=== PATIENT | female | born 1985 | race Caucasian/White ===

== ENCOUNTER 2018-01-09 05:37 | Day surgery (SDC) | payer MEDICAID ==
[2018-01-03 14:41] LABS: BASOPHILS # (AUTO) 0.1 X10'3 (0-0.2); EOSINOPHILS # (AUTO) 0.1 X10'3 (0-0.9); EOSINOPHILS % (AUTO) 1.4 % (0-6); LYMPHOCYTES # (AUTO) 1.3 X10'3 (1.1-4.8); LYMPHOCYTES % (AUTO) 16.4 % (21-51); MEAN CORPUSCULAR HGB CONC 32.9 % (33.0-36.5); MEAN PLATELET VOLUME 7.7 FL (7.4-10.4); MONOCYTES # (AUTO) 0.5 X10'3 (0-0.9); MONOCYTES % (AUTO) 6.3 % (2-12); NEUTROPHILS # (AUTO) 5.9 X10'3 (1.8-7.7); NEUTROPHILS % (AUTO) 74.9 % (42-75); PRE OP HEMATOCRIT 32.6 % (35.0-45.0); PRE OP PLATELET COUNT 351 X10'3 (140-440); RED CELL DISTRIBUTION WIDTH 21.6 % (11.5-14.5)
[2018-01-03 14:51] LABS: PRE OP PROTIME 10.7 SECONDS (9.0-12.0)
[2018-01-03 14:54] LABS: PRE OP HEMOGLOBIN 10.7 g/dL (12.0-16.0)
[2018-01-03 14:56] LABS: ALBUMIN 3.3 G/DL (3.4-5.0); ALBUMIN/GLOBULIN RATIO 0.7 (1.1-1.5); ALKALINE PHOSPHATASE 140 IU/L (46-116); BLOOD UREA NITROGEN 8 MG/DL (7-18); BUN/CREATININE RATIO 11.9 (6.6-38.0); CALCIUM 9.1 MG/DL (8.5-10.1); CHLORIDE 104 MMOL/L (99-107); CREATININE 0.67 MG/DL (0.40-0.90); PRE OP ANION GAP 11 (8-16); PRE OP AST 100 U/L (10-37); PRE OP BILIRUB, TOTAL 0.4 MG/DL (0.0-1.0); PRE OP GLUCOSE 113 MG/DL (70-104); PRE OP POTASSIUM 3.7 MMOL/L (3.4-5.1); PRE OP SODIUM 138 MMOL/L (135-145); TOTAL CARBON DIOXIDE 23.4 MMOL/L (24-32); TOTAL PROTEIN 8.3 G/DL (6.4-8.2); eGFR > 90 ML/MIN
[2018-01-03 14:58] LABS: PRE OP ALT 108 U/L (30-65)
[2018-01-03 17:51] LABS: PLATELET ESTIMATE NORMAL
[2018-01-03 17:53] LABS: LARGE PLATELETS FEW
[2018-01-03 17:54] LABS: ANISOCYTOSIS 3+; HYPOCHROMASIA 1+; POLYCHROMASIA FEW; TEAR DROP CELLS FEW
[2018-01-09] VITALS (8 sets, daily range): BP systolic 127–147; BP diastolic 70–93
[~2018-01-09] VITALS: Ht 167.6 cm; Wt 121.6 kg
[~2018-01-09 05:37] MED LIST: ALBU8.5H8 INH; DOCUMENT DATE & TIME OF BETA-BLOCKER PO ONE; FURO-150 PO; IRON PO; METO50TA16 PO; OMEP20CA10 PO; SPIR25TA5 PO; albuterol 2.5 MG/3 ML nebule NEB ONE; famotidine 20mg tablet PO ONE; ringers solution, lacted 1,000 ML IV SCH
[2018-01-09] MEDS ORDERED: LIDOcaine 1% (10mg/ml) 2ml vial ONE (06:12)
[2018-01-09] MEDS ORDERED: Cefazolin 2GM/50ML dext iso,osmotic IVPB IV ONE (06:19)
[2018-01-09] MEDS ORDERED: vancomycin inj 1,500 MG in normal saline 300ml IV soln IV ONE (06:19)
[2018-01-09] MEDS ORDERED: ROPIVAcaine 0.5% (5mg/ml) 30ml vial ONE (08:09)
[2018-01-09] MEDS ORDERED: MIDAZolam 5mg/5ml vial ONE (08:11)
[2018-01-09] MEDS ORDERED: fentaNYL /PF 50mcg/ml 5ml ampule ONE (08:11)
[2018-01-09] MEDS ORDERED: propofol inj 0 ML IV ONE (08:12)
[2018-01-09] MEDS ORDERED: LIDOcaine 2% (20mg/ml) 5ml vial ONE ×2 (08:12→12:34)
[2018-01-09] MEDS ORDERED: ondansetron/PF 4mg/2ml inj ONE (08:25)
[2018-01-09] MEDS ORDERED: sevoflurane 250ml liquid IH ONE (08:25)
[2018-01-09] MEDS ORDERED: dexamethasone sod phosphate 10mg/ml inj ONE (08:25)
[2018-01-09] MEDS ORDERED: ringers solution, lacted 1,000 ML IV SCH (09:27)
[2018-01-09] MEDS ORDERED: fentaNYL/PF 50MCG/1 ML 2ML syringe IV PRN ×2 (09:30)
[2018-01-09] MEDS ORDERED: hydrALAZINE 20mg/ml inj. IV PRN (09:30)
[2018-01-09] MEDS ORDERED: morphine 4 MG/ML inj SYRINge IV PRN ×2 (09:30)
[2018-01-09] MEDS ORDERED: labetalol 20mg/4ml (5mg/ml) syringe IV PRN (09:30)
[2018-01-09] MEDS ORDERED: ondansetron/PF 4mg/2ml inj IV PRN (09:30)
[2018-01-09] MEDS ORDERED: fentaNYL/PF 50MCG/1 ML 2ML syringe ONE (10:42)
[2018-01-09] MEDS ORDERED: HYDROcodone/acetaminophen 10/325mg tab PO PRN (11:10)
[2018-01-09] MEDS ORDERED: FERR325T32 PO (11:29)
[2018-01-09] MEDS ORDERED: propofol inj 20 ML IV ONE (12:33)
== END 2018-01-09 12:20 | disposition home or self-care (01) ==
LOC: PAS 05:37
PROVIDERS: ATTEND Orthopaedic Surgery
DX: S83.522A Sprain of posterior cruciate ligament of left knee, initial encounter (principal); M17.32 Unilateral post-traumatic osteoarthritis, left knee; M22.42 Chondromalacia patellae, left knee; G89.18 Other acute postprocedural pain; I10 Essential (primary) hypertension; E66.01 Morbid (severe) obesity due to excess calories; K21.9 Gastro-esophageal reflux disease without esophagitis; Z68.41 Body mass index [BMI] 40.0-44.9, adult; Z79.2 Long term (current) use of antibiotics; Z79.891 Long term (current) use of opiate analgesic; Z88.2 Allergy status to sulfonamides; Z72.89 Other problems related to lifestyle; Z79.51 Long term (current) use of inhaled steroids; Z86.79 Personal history of other diseases of the circulatory system; Z87.891 Personal history of nicotine dependence; Z88.8 Allergy status to other drugs, medicaments and biological substances; Z79.899 Other long term (current) drug therapy; Z98.890 Other specified postprocedural states; X58.XXXA Exposure to other specified factors, initial encounter; Y93.89 Activity, other specified; Y92.89 Other specified places as the place of occurrence of the external cause; Y99.8 Other external cause status
CPT/HCPCS: 29889; 36415; 64447; 71046; 80053; 85025; 85610; 85730; 93005; 94640; A6449; C1713; C1776; J0690; J1100; J2001; J2250; J2270; J2405; J2704; J2795; J3010; J3370; J3490; J7030; J7120; L1832; A7000

== ENCOUNTER 2023-03-14 05:39 | Inpatient (IN) | payer MEDICAID ==
[2023-03-07 14:32] LABS: BASOPHILS % (AUTO) 0.3 % (0-1); EOSINOPHILS % (AUTO) 0.2 % (0-6); LYMPHOCYTES # (AUTO) 0.8 X10'3 (1.1-4.8); LYMPHOCYTES % (AUTO) 12.1 % (21-51); MEAN CORPUSCULAR HEMOGLOBIN 23.6 PG (27.0-31.0); MEAN CORPUSCULAR VOLUME 73.9 FL (78-98); MEAN PLATELET VOLUME 7.5 FL (7.4-10.4); MONOCYTES # (AUTO) 0.4 X10'3 (0-0.9); MONOCYTES % (AUTO) 6.1 % (2-12); NEUTROPHILS # (AUTO) 5.4 X10'3 (1.8-7.7); NEUTROPHILS % (AUTO) 81.3 % (42-75); PRE OP HEMATOCRIT 36.5 % (35.0-45.0); PRE OP HEMOGLOBIN 11.7 g/dL (12.0-16.0); PRE OP PLATELET COUNT 172 X10'3 (140-440); PRE OP WHITE BLOOD COUNT 6.6 10'3 (4.8-10.8); RED BLOOD COUNT 4.94 X10'6 (4.20-5.60); RED CELL DISTRIBUTION WIDTH 20.3 % (11.5-14.5)
[2023-03-07 14:46] LABS: ALBUMIN 3.7 G/DL (3.4-5.0); ALBUMIN/GLOBULIN RATIO 0.8 (1.1-1.5); ALKALINE PHOSPHATASE 94 IU/L (46-116); BLOOD UREA NITROGEN 6 MG/DL (7-18); BUN/CREATININE RATIO 8.5 (10.0-20.0); CALCIUM 9.6 MG/DL (8.5-10.1); CHLORIDE 100 MMOL/L (99-107); CREATININE 0.71 MG/DL (0.40-0.90); PRE OP ALT 55 U/L (30-65); PRE OP ANION GAP 9 (8-16); PRE OP AST 43 U/L (10-37); PRE OP BILIRUB, TOTAL 0.4 MG/DL (0.0-1.0); PRE OP GLUCOSE 101 MG/DL (70-104); PRE OP POTASSIUM 3.7 MMOL/L (3.4-5.1); PRE OP SODIUM 136 MMOL/L (135-145); TOTAL CARBON DIOXIDE 26.6 MMOL/L (24-32); TOTAL PROTEIN 8.1 G/DL (6.4-8.2); eGFR > 90 ML/MIN
[2023-03-07 14:54] LABS: ANISOCYTOSIS 3+; MICROCYTOSIS 1+; PLATELET ESTIMATE NORMAL
[2023-03-07 15:08] LABS: HCG SERUM QL NEGATIVE
[~2023-03-14] VITALS: Ht 167.6 cm; Wt 110.1 kg
[2023-03-14] VITALS (39 sets, daily range): BP systolic 95–135; BP diastolic 52–104; PULSE 65–99; RESP 13–22; TEMP 97.8–98.6; O2SAT 95–100
[~2023-03-14 05:39] MED LIST changes: +ALBU8.5H17 INH; -ALBU8.5H8 INH; +BUPR150T8 PO; -DOCUMENT DATE & TIME OF BETA-BLOCKER PO ONE; +FOLI0.4T6 PO; -FURO-150 PO; +GABA300C PO; -IRON PO; +METF-900 PO; -METO50TA16 PO; +NALT50TA PO; -OMEP20CA10 PO; +OMEP20CA15 PO; +PROP10TA10 PO; +VITA-268 PO; +cefazolin 2gm/D5W 100mL 100 ML IV ONE; +tranexamic acid 650mg tablet PO ONE; +vancomycin 1,500 MG in NS 300ml IV soln IV ONE
[2023-03-14] MEDS ORDERED: BUPIVACAINE/MELOXICAM 14 ML VIAL IL ONE ×2 (06:40→08:41)
[2023-03-14] MEDS ORDERED: MIDAZolam 1mg/ml 10ml vial ONE (07:39)
[2023-03-14] MEDS ORDERED: fentaNYL/PF 50MCG/1 ML 2ML syringe ONE (07:39)
[2023-03-14] MEDS ORDERED: propofol inj 20 ML IV ONE ×3 (07:41→09:16)
[2023-03-14] MEDS ORDERED: MIDAZolam 1 MG/ML 5ML VIAL ONE (08:46)
[2023-03-14] MEDS ORDERED: morphine 2 MG/ML inj. syringe IV PRN (09:05)
[2023-03-14] MEDS ORDERED: ringers solution, lacted 1,000 ML IV SCH (09:05)
[2023-03-14] MEDS ORDERED: ondansetron/PF 4mg/2ml inj IV PRN ×2 (09:05→10:10)
[2023-03-14] MEDS ORDERED: meperidine/PF 25mg/ml syringe IV PRN ×2 (09:05)
[2023-03-14] MEDS ORDERED: ROPIVAcaine 0.5% (5mg/ml) 30ml vial ONE (09:16)
--- NOTE | 2023-03-14 09:59 | NUR ---
Received from OR via BED, accompanied by Anesthesiologist DR MARTINEZ and report given by Anesthesiologist AND TECHNICAL HEALTHCARE CONSULTANT. PT DROWSY, DENIES PAIN. LEFT LEG W/ISLAND DRSG CDI, LEG WRAP, ICE PACK IN PLACE. DR CRUZ IN TO SET SETTINGS ON BRACE FULL ROM, TECHNICAL HEALTHCARE CONSULTANT HERE TO ASSIST PLACEMENT ON PTS LEG. DERMATOME LEVEL L-1. Addendum: 03/14/23 at 1054 by Marry Garrett RN Amended: Links added.
[2023-03-14] MEDS ORDERED: HYDROmorphone inj. 0.5 MG/0.5 ML DISP.SYRIN IV PRN (10:10)
[2023-03-14] MEDS ORDERED: magnesium hydroxide 30ml (MOM) UD suspension PO PRN (10:10)
[2023-03-14] MEDS ORDERED: bisacodyl 10mg suppository rectal RC PRN (10:10)
[2023-03-14] MEDS ORDERED: acetaminophen 325mg tablet PO PRN (10:10)
[2023-03-14] MEDS ORDERED: oxyCODONE IR 5mg (immed. release) tablet PO PRN (10:10)
[2023-03-14] MEDS ORDERED: propranolol 10mg tablet PO PRN (10:10)
[2023-03-14] MEDS ORDERED: naloxone 0.4 mg/ml inj IV PRN (10:10)
[2023-03-14] MEDS ORDERED: albuterol 2.5 MG/3 ML nebule NEB PRN (10:10)
[2023-03-14] MEDS ORDERED: diphenhydrAMINE 25mg capsule PO PRN ×2 (10:10)
[2023-03-14] MEDS: meperidine/PF 25mg/ml syringe IV PRN ×2 (11:59→12:08)
[2023-03-14] MEDS: morphine 4 MG/ML inj SYRINge IV PRN ×2 (12:20→13:17)
[2023-03-14] MEDS: proCHLORperazine 10 MG/2 ml inj IV PRN ×2 (13:20→14:08)
[2023-03-14] MEDS ORDERED: acetaminophen 325mg tablet PO SCH (14:00)
[2023-03-14] MEDS: ketorolac trometh. 30mg/ml inj. IV SCH ×2 (14:08→20:36)
--- NOTE | 2023-03-14 14:15 | NUR ---
PT REMAINS VERY PAINFUL, DR CRUZ IN, UPDATED ORDERS RECEIVED FOR TORADOL. PT UP TO [facility] W/ASSIST FOR VOID AND BACK TO BED. Addendum: 03/14/23 at 1419 by Marry Garrett RN Amended: Links added.
[2023-03-14] MEDS: oxyCODONE IR 5mg (immed. release) tablet PO PRN ×2 (16:04→23:42)
--- NOTE | 2023-03-14 16:19 | NUR ---
Report called to receiving nurse. PT AWAKENED FROM [place], STATES SHE IS FEELING BETTER AND PAIN IS LESS THAN EARLIER, PT ASKED IF SHE WANTED PAIN MEDICATION BEFORE SHE TRANSFERRED TO THE FLOOR, SHE STATED YES AND THAT HER PAIN IS ABOUT 7/10. 2 5MG/325 PERCOCET GIVEN PRIOR TO TRANSFER. Transferred via BED W/2 BAGS OF Belongings AND CELL PHONE. BLL, CALL LIGHT GIVEN TO PT, SIDE RAILS UP X 2, PTS S/O AT BEDSIDE. NOTIFIED RN OF PTS ARRIVAL. Special Issues communicated to receiving nurse. YES. Addendum: 03/14/23 at 1643 by Marry Garrett RN Amended: Links added.
--- NOTE | 2023-03-14 16:30 | NUR ---
Patient in room [facility]THO 4013. I have received report from KELLEE Hartley and had the opportunity to ask questions and assume patient care.
[2023-03-14] MEDS: ceFAZolin/D5W- 1GM premix 50 ML IV SCH ×2 (17:32→23:45)
[2023-03-14] MEDS: potassium cl 20mEq in 1/2 NS 1,000 ML IV SCH ×2 (18:10→20:44)
[2023-03-14] MEDS: HYDROmorphone 1 mg/ml syringe IV PRN (18:29)
--- NOTE | 2023-03-14 19:00 | NUR ---
Problems reprioritized. Patient report given, questions answered & plan of care reviewed with
[2023-03-14] MEDS ORDERED: vancomycin/NS 1 GM ADD-VANTAGE 250 ML IV SCH (20:00)
[2023-03-14] MEDS: naltrexone 50mg tablet PO SCH (20:00)
[2023-03-14] MEDS: metFORMIN 500mg tablet PO SCH (20:00)
[2023-03-14] MEDS: pantoprazole 40mg Tablet.DR PO SCH (20:36)
[2023-03-14] MEDS ORDERED: sennosides 8.6mg tablet PO SCH (21:00)
[2023-03-15] MEDS: ketorolac trometh. 30mg/ml inj. IV SCH ×2 (01:34→07:24)
[2023-03-15 01:43] VITALS: BP 127/70; PULSE 106; RESP 16; TEMP 98.6; O2SAT 95
[2023-03-15] MEDS: potassium cl 20mEq in 1/2 NS 1,000 ML IV SCH ×2 (02:10→10:10)
[2023-03-15] MEDS: oxyCODONE IR 5mg (immed. release) tablet PO PRN (05:20)
[2023-03-15 06:00] VITALS: BP 128/76; PULSE 108; RESP 20; TEMP 97.9; O2SAT 98
--- NOTE | 2023-03-15 06:24 | NUR ---
I have received report from KELLEE Steel and had the opportunity to ask questions and assume patient care. No distress at this time.
--- NOTE | 2023-03-15 06:27 | NUR ---
Problems reprioritized. Patient report given, questions answered & plan of care reviewed with KELLEE POLLOCK.
[2023-03-15 07:17] LABS: BASOPHILS % (AUTO) 0.5 % (0-1); EOSINOPHILS % (AUTO) 0.1 % (0-6); HEMATOCRIT 29.6 % (35.0-45.0); HEMOGLOBIN 9.3 g/dl (12.0-16.0); LYMPHOCYTES # (AUTO) 1.1 X10'3 (1.1-4.8); LYMPHOCYTES % (AUTO) 11.4 % (21-51); MEAN CORPUSCULAR HEMOGLOBIN 23.6 PG (27.0-31.0); MEAN CORPUSCULAR HGB CONC 31.5 g/dL (33.0-36.5); MEAN CORPUSCULAR VOLUME 75.1 FL (78-98); MEAN PLATELET VOLUME 7.2 FL (7.4-10.4); MONOCYTES # (AUTO) 1.2 X10'3 (0-0.9); MONOCYTES % (AUTO) 12.5 % (2-12); NEUTROPHILS # (AUTO) 7.2 X10'3 (1.8-7.7); NEUTROPHILS % (AUTO) 75.5 % (42-75); PLATELET COUNT 358 X10'3 (140-440); RED BLOOD COUNT 3.94 X10'6 (4.20-5.60); RED CELL DISTRIBUTION WIDTH 20.6 % (11.5-14.5); WHITE BLOOD COUNT 9.5 X10'3 (4.5-11.0)
[2023-03-15 07:44] LABS: ANION GAP 9 (8-16); CHLORIDE 103 MMOL/L (99-107); POTASSIUM 3.8 MMOL/L (3.5-5.1); SODIUM 134 MMOL/L (135-145); TOTAL CARBON DIOXIDE 21.6 MMOL/L (24-32)
[2023-03-15 07:55] LABS: ANISOCYTOSIS 3+; MICROCYTOSIS 1+; PLATELET ESTIMATE NORMAL
[2023-03-15 07:56] LABS: LARGE PLATELETS FEW
[2023-03-15 08:00] VITALS: RESP 16; O2SAT 98
[2023-03-15] MEDS ORDERED: buPROPion SR 150mg tablet PO SCH (08:00)
[2023-03-15] MEDS ORDERED: folic acid 0.4mg tablet PO SCH (08:00)
[2023-03-15] MEDS: metFORMIN 500mg tablet PO SCH (08:00)
[2023-03-15] MEDS ORDERED: vitamin B comp w/Vit. C tab 1 TAB TABLET PO SCH (08:00)
[2023-03-15] MEDS ORDERED: gabapentin 300mg capsule PO SCH (08:00)
[2023-03-15] MEDS ORDERED: spironolactone 25 MG tablet PO SCH (08:00)
[2023-03-15] MEDS: naltrexone 50mg tablet PO SCH (08:00)
[2023-03-15] MEDS ORDERED: aspirin 325mg tablet PO SCH (08:30)
[2023-03-15] MEDS: pantoprazole 40mg Tablet.DR PO SCH (08:40)
--- NOTE | 2023-03-15 09:10 | NUR ---
Per EMR pt POD #1 s/p left TKA. Written high protein education with ONS coupons and RD contact information mailed to patient's address found in EMR d/t short staffing. Will continue to follow and provide verbal education as able. Addendum: 03/15/23 at [address] Amended: Links added.
[2023-03-15 10:00] VITALS: BP 127/71; PULSE 109; RESP 18; TEMP 97.9; O2SAT 99
[2023-03-15] MEDS: HYDROmorphone 1 mg/ml syringe IV PRN (10:16)
[2023-03-15] MEDS ORDERED: HYDROcodone/acetaminophen 10/325mg tab PO ONE (11:25)
[2023-03-15] MEDS ORDERED: ONDA4TAB12 PO (11:29)
[2023-03-15 11:47] VITALS: RESP 16
--- NOTE | 2023-03-15 12:19 | NUR ---
I have reviewed and agree with interventions, assessments, and documentation by Paty Alejandro LVN .
--- NOTE | 2023-03-15 13:19 | NUR ---
Patient discharge w/ no distress, stable. Accompanied by her spouse, drove pt home as well. Patient has all belongings upon discharge including; supplies for at home change, IS devise, brace, powder packs. Patients\' IV d/c'd w/ canula intact. Educated/ reinforced s/sx of infection, and to follow up as directed, & pain management. Wheeled out by PCT.
[2023-03-16] MEDS ORDERED: acetaminophen 325mg tablet PO PRN (10:10)
== END 2023-03-15 13:15 | disposition home or self-care (01) | DRG 326 ==
LOC: PAS IN 05:39 → ORTHO 4S 16:23
PROVIDERS: ADMIT Orthopaedic Surgery; ATTEND Orthopaedic Surgery
PROC: 8E0Y0CZ Robotic Assisted Procedure of Lower Extremity, Open Approach (ICD-10-PCS; 2023-03-14)
PROC: 8E0YXBZ Computer Assisted Procedure of Lower Extremity (ICD-10-PCS; 2023-03-14)
PROC: 0MQP0ZZ Repair Left Knee Bursa and Ligament, Open Approach (ICD-10-PCS; 2023-03-14)
PROC: 3E0T3BZ Introduction of Anesthetic Agent into Peripheral Nerves and Plexi, Percutaneous Approach (ICD-10-PCS; 2023-03-14)
PROC: 0SRD0JZ Replacement of Left Knee Joint with Synthetic Substitute, Open Approach (ICD-10-PCS; principal; 2023-03-14 07:46)
DX: M17.12 Unilateral primary osteoarthritis, left knee (principal); F32.A Depression, unspecified; S83.412A Sprain of medial collateral ligament of left knee, initial encounter; F41.9 Anxiety disorder, unspecified; X58.XXXA Exposure to other specified factors, initial encounter; Y93.89 Activity, other specified; Y92.89 Other specified places as the place of occurrence of the external cause; Y99.8 Other external cause status; Z88.2 Allergy status to sulfonamides; Z88.8 Allergy status to other drugs, medicaments and biological substances
CPT/HCPCS: 36415; 80051; 80053; 82948; 84703; 85008; 85025; 87081; 93005; 94640; 94760; 97116; 97161; 97530; A6253; A6258; A6449; G0378; J0690; J0780; J1170; J1885; J2175; J2250; J2270; J2405; J2704; J2795; J3010; J3370; J3480; J7120

== ENCOUNTER 2023-10-31 14:41 | Emergency (ER) | payer MEDICAID ==
[~2023-10-31] VITALS: Ht 165.1 cm; Wt 106.8 kg
[~2023-10-31 14:41] MED LIST changes: -NALT50TA PO; +NALT50TA5 PO; +ONDA-243 PO; -albuterol 2.5 MG/3 ML nebule NEB ONE; -cefazolin 2gm/D5W 100mL 100 ML IV ONE; -famotidine 20mg tablet PO ONE; -ringers solution, lacted 1,000 ML IV SCH; -tranexamic acid 650mg tablet PO ONE; -vancomycin 1,500 MG in NS 300ml IV soln IV ONE
[2023-10-31 15:57] LABS: BASOPHILS # (AUTO) 0.1 X10'3 (0-0.2); BASOPHILS % (AUTO) 0.7 % (0-1); EOSINOPHILS % (AUTO) 0 % (0-6); HEMATOCRIT 32.8 % (35.0-45.0); HEMOGLOBIN 10.1 g/dl (12.0-16.0); LYMPHOCYTES # (AUTO) 0.3 X10'3 (1.1-4.8); LYMPHOCYTES % (AUTO) 2.4 % (21-51); MEAN CORPUSCULAR HEMOGLOBIN 22.9 PG (27.0-31.0); MEAN CORPUSCULAR HGB CONC 30.8 g/dL (33.0-36.5); MEAN CORPUSCULAR VOLUME 74.5 FL (78-98); MEAN PLATELET VOLUME 6.7 FL (7.4-10.4); MONOCYTES % (AUTO) 7.1 % (2-12); NEUTROPHILS # (AUTO) 12.6 X10'3 (1.8-7.7); NEUTROPHILS % (AUTO) 89.8 % (42-75); PLATELET COUNT 205 X10'3 (140-440); RED CELL DISTRIBUTION WIDTH 21.9 % (11.5-14.5); WHITE BLOOD COUNT 14.1 X10'3 (4.5-11.0)
[2023-10-31 16:12] LABS: ANION GAP 17 (8-16); BILIRUBIN,TOTAL 0.6 MG/DL (0.1-1.0); BLOOD UREA NITROGEN 10 MG/DL (7-18); BUN/CREATININE RATIO 8.2 (10.0-20.0); CALCIUM 7.9 MG/DL (8.5-10.1); CHLORIDE 107 MMOL/L (99-107); CREATININE 1.22 MG/DL (0.40-0.90); GLUCOSE 100 MG/DL (70-104); POTASSIUM 3.6 MMOL/L (3.5-5.1); SODIUM 145 MMOL/L (135-145); TOTAL CARBON DIOXIDE 21.1 MMOL/L (24-32); eCRCL 55 ML/MIN; eGFR 49 ML/MIN
[2023-10-31 16:13] LABS: ALANINE AMINOTRANSFERASE 76 U/L (12-78); ALBUMIN 3.4 G/DL (3.4-5.0); ALBUMIN/GLOBULIN RATIO 0.8 (1.1-1.5); ALKALINE PHOSPHATASE 91 IU/L (46-116); ASPARTATE AMINO TRANSFERASE 112 U/L (10-37); CREATINE KINASE 812 U/L (26-192); TOTAL PROTEIN 7.5 G/DL (6.4-8.2)
[2023-10-31] MEDS: normal saline 1000ML IV soln IVB ONE ×2 (16:27→19:26)
[2023-10-31] MEDS: ondansetron/PF 4mg/2ml inj IV ONE (16:28)
[2023-10-31] MEDS: acetaminophen 1,000mg/100ml IV 100 ML IV ONE (16:28)
[2023-10-31 17:05] LABS: ANISOCYTOSIS 3+; ELLIPTOCYTES 2+; HYPOCHROMASIA 2+; MICROCYTOSIS 1+; PLATELET ESTIMATE NORMAL
[2023-10-31 18:09] LABS: URINE HCG NEGATIVE (NEG)
[2023-10-31 18:12] LABS: BILIRUBIN,URINE NEGATIVE (Neg); CLARITY,URINE CLOUDY (Clear); COLOR,URINE YELLOW (Yellow); GLUCOSE, URINE NEGATIVE (Neg); KETONES,URINE 15 mg/dl (Neg); LEUKOCYTE ESTERASE ,URINE SMALL (Neg); NITRITES, URINE POSITIVE (Neg); OCCULT BLOOD,URINE TRACE-INTACT (Neg); PH,URINE 5.5 (4.8-8.0); PROTEIN,URINE 30 mg/dl (Neg); UROBILINOGEN,URINE 0.2 E.U/dL (0.2-1.0)
[2023-10-31] MEDS ORDERED: CEPH-585 PO (18:20)
[2023-10-31] MEDS ORDERED: BACI28.42 TOP (18:20)
[2023-10-31 18:30] LABS: BACTERIA,URINE 4+ /HPF (Neg); RBC,URINE 0-2 /HPF (0-2); WBC,URINE 50-100 /HPF (0-4)
[2023-10-31 18:31] LABS: SQUAMOUS EPITHELIAL CELL,UR MANY /LPF (FEW); UA COLLECTION TYPE CLN CATCH MIDSTREAM
[2023-10-31] MEDS: LORazepam 1 MG tablet PO ONE (18:44)
[2023-10-31] MEDS: CefTRIAXone 2gm/D5W 50ml BAG 50 ML IV ONE (18:45)
[2023-10-31] MEDS: TETanus/Pertussis (Acell)/Diphther VAC/PF (Tdap-Adult) 0.5ml syringe IMVAC ONE (19:27)
[2023-10-31 21:13] VITALS: BP 137/66; PULSE 99; RESP 18; TEMP 98; O2SAT 99
== END 2023-10-31 21:30 | disposition home or self-care (01) ==
LOC: ER 14:42
DX: N39.0 Urinary tract infection, site not specified (principal); F10.129 Alcohol abuse with intoxication, unspecified; J45.909 Unspecified asthma, uncomplicated; Z88.8 Allergy status to other drugs, medicaments and biological substances; Z79.2 Long term (current) use of antibiotics; Z79.84 Long term (current) use of oral hypoglycemic drugs; Z79.899 Other long term (current) drug therapy; Z72.89 Other problems related to lifestyle
CPT/HCPCS: 36415; 71045; 80053; 81001; 81025; 82550; 83605; 84145; 85008; 85025; 90471; 90715; 93005; 96361; 96365; 96366; 96375; 99285; J0131; J0696; J2405; J7030; A4615